=== PATIENT | female | born 1960 | race Caucasian/White ===

== ENCOUNTER → 2016-04-02 | Outpatient (CLI) | payer MEDICARE, OTHER ==
--- NOTE | 2016-04-05 12:39 | MM ---
Reason for exam: screening (asymptomatic). Last mammogram was performed 1 year and 3 months ago. History: Benign US breast aspiration single RT of the right breast, December 26, 2013. Physical Findings: A clinical breast exam by your physician is recommended on an annual basis and results should be correlated with mammographic findings. MG 3D Screening Mammo W/Cad Bilateral CC and MLO view(s) were taken. Prior study comparison: December 24, 2014, bilateral MG 3d screening mammo w/cad. December 26, 2013, right breast MG diagnostic mammo RT wo CAD. December 12, 2013, right breast MG work up mamm w CAD RT. December 05, 2013, bilateral MG screening mammo w CAD. December 17, 2009, bilateral digital screening mammogram. There are scattered fibroglandular densities. Adjacent nodularity is smaller. Previous mammotome biopsy in the right breast. No significant changes when compared with prior studies. ASSESSMENT: Negative, BI-RAD 1 RECOMMENDATION: Routine screening mammogram of both breasts in 1 year.
== END | disposition home or self-care (01) ==
LOC: RADMAMWWP 16:26
PROVIDERS: ATTEND Family Medicine
DX: Z12.31 Encounter for screening mammogram for malignant neoplasm of breast (principal)
CPT/HCPCS: 77063; G0202

== ENCOUNTER → 2017-01-03 | Outpatient (CLI) | payer MEDICARE, OTHER ==
--- NOTE | 2017-01-03 14:47 | US ---
EXAMINATION TYPE: US abdomen complete DATE OF EXAM: 01/03/2017 COMPARISON: NONE CLINICAL HISTORY: 56-year-old female R10.9 Abdominal pain,R39.9 urinary symptoms. Left flank pain TECHNIQUE: Multiple sonographic images of the abdomen are obtained. FINDINGS: Liver Length: 19.5 cm Gallbladder: Surgically absent CBD: 0.4 cm Spleen: 10.1 cm Right Kidney: 11.6 x 3.6 x 3.9 cm Left Kidney: 10.4 x 5.1 x 4.9 cm Pancreas: Suboptimal visualization of the pancreatic tail secondary to shadowing from bowel gas. Vis ualized portions appear within normal limits. Liver: enlarged but with normal homogeneous echotexture. Gallbladder: Surgically absent Evidence for sonographic Torrez's sign: No CBD: wnl Spleen: wnl Right Kidney: no hydronephrosis Left Kidney: no hydronephrosis Upper IVC: wnl Abd Aorta: visualized portions appear wnl IMPRESSION: 1. Hepatomegaly but otherwise with normal ultrasound appearance of the liver. 2. Status post cholecystectomy. No biliary ductal dilatation. 3. No hydronephrosis.
== END | disposition home or self-care (01) ==
LOC: RADUSWWP 13:08
PROVIDERS: ATTEND Family Medicine
DX: R16.0 Hepatomegaly, not elsewhere classified (principal); R10.9 Unspecified abdominal pain; R39.9 Unspecified symptoms and signs involving the genitourinary system; Z90.49 Acquired absence of other specified parts of digestive tract
CPT/HCPCS: 76700

== ENCOUNTER 2017-03-30 13:05 | Observation (INO) | payer MEDICARE, OTHER ==
[2017-03-30 13:28] LABS: Glucose,Whole Blood 79 mg/dL (75-99)
[2017-03-30] MEDS ORDERED: SODIUM CHLORIDE 0.9% 1,000 ML IV STA (13:32)
[2017-03-30 14:40] LABS: Basophils # (A) 0.1 k/uL (0-0.2); Basophils % (A) 1 %; Eosinophils # (A) 0.2 k/uL (0-0.7); Eosinophils % (A) 2 %; HCT 45.7 % (34.0-46.0); HGB 13.9 gm/dL (11.4-16.0); Lymphocytes # (A) 2.3 k/uL (1.0-4.8); Lymphocytes % (A) 25 %; MCH 28.6 pg (25.0-35.0); MCHC 30.4 g/dL (31.0-37.0); MCV 94.3 fL (80.0-100.0); Mean Platelet Volume 9.3; Monocytes # (A) 0.5 k/uL (0-1.0); Monocytes % (A) 6 %; Neutrophils % (A) 65 %; Platelet Count 250 k/uL (150-450); RBC 4.85 m/uL (3.80-5.40); RDW 12.3 % (11.5-15.5); WBC 9.2 k/uL (3.8-10.6)
[2017-03-30 14:50] LABS: ALT 24 U/L (9-52); AST 20 U/L (14-36); Albumin 4.4 g/dL (3.5-5.0); Alkaline Phosphatase 69 U/L (38-126); Anion Gap 9 mmol/L; Blood Urea Nitrogen 14 mg/dL (7-17); Calcium 10.5 mg/dL (8.4-10.2); Carbon Dioxide 29 mmol/L (22-30); Chloride 105 mmol/L (98-107); Glucose 91 mg/dL (74-99); Potassium 4.4 mmol/L (3.5-5.1); Sodium 143 mmol/L (137-145); Total Bilirubin 0.4 mg/dL (0.2-1.3); Total Protein 7.3 g/dL (6.3-8.2)
[2017-03-30 14:56] LABS: Partial Thromboplastin Time 23.6 sec (22.0-30.0); Prothrombin Time 10.1 sec (9.0-12.0)
[2017-03-30 15:05] LABS: Creatine Kinase 84 U/L (30-135)
[2017-03-30 15:18] LABS: Creatine Kinase MB 0.9 ng/mL (0.0-2.4); Troponin I <0.012 ng/mL (0.000-0.034)
--- NOTE | 2017-03-30 15:28 | CT ---
EXAMINATION TYPE: CT brain wo con DATE OF EXAM: 03/30/2017 COMPARISON: 03/14/2013 HISTORY: 56-year-old female Patient complains of left hand fingertip numbness and left side facial nu mbness. TECHNIQUE: Examination was done in axial plane without intravenous contrast. Coronal and sagittal r econstructions performed. CT DLP: 288.5 mGycm Automated exposure control for dose reduction was used. FINDINGS: There is no evidence of acute intracranial hemorrhage, acute ischemic changes, mass, mass-effect, or extra-axial fluid collection. There is no effacement of cerebral sulci or basal subarachnoid cister ns. There is no hydrocephalus. There is no midline shift. Larsen-white matter distinction is preserv ed. Partially empty sella. Mild bifrontal atrophy. Orbits and globes are intact. Mastoid air cells are we ll pneumatized. Paranasal sinuses clear. IMPRESSION: No acute intracranial abnormality seen. Mild bifrontal atrophy. If symptoms persist, consider follow- up CT or MRI.
--- NOTE | 2017-03-30 15:57 | ED ---
Neuro HPI - General Chief Complaint: Neuro Symptoms/Deficit Stated Complaint: Poss Stroke Time Seen by Provider: 03/30/17 13:27 Source: patient Mode of arrival: ambulatory Limitations: no limitations - History of Present Illness Is the patient presenting with stroke symptoms?: No Initial Comments: LEDA years old female with a history of previous CVA was sent from Dr. Cortes's office also has a history of seizure disorder along with the CVA presented with a left hand weakness and this weakness is ongoing for several days she said about 6 days and is too weak to sit dropping things she also noticed her blood pressure was high though she said mostly her blood pressures in the lower side also complaining about left-sided facial numbness. Denies any chest pain or shortness of breath denies any fever no chills does have a headache no blurred vision no weakness of present extremities - Related Data Home Medications: Home Medications Medication Instructions Recorded Confirmed Omeprazole [PriLOSEC] 20 mg PO BID PRN 01/23/16 03/30/17 Allergies/Adverse Reactions: Allergies Allergy/AdvReac Type Severity Reaction Status Date / Time No Known Allergies Allergy Verified 03/30/17 13:40 Review of Systems ROS Statement: Those systems with pertinent positive or pertinent negative responses have been documented in the HPI. ROS Other: All systems not noted in ROS Statement are negative. General Exam Limitations: no limitations Stroke MDM - Lab Data Result diagrams: 03/30/17 14:25 03/30/17 14:25 Lab Results 03/30/17 03/30/17 03/30/17 Range/Units 13:23 14:25 14:25 WBC 9.2 (3.8-10.6) k/uL RBC 4.85 (3.80-5.40) m/uL Hgb 13.9 (11.4-16.0) gm/dL Hct 45.7 (34.0-46.0) % MCV 94.3 (80.0-100.0) fL MCH 28.6 (25.0-35.0) pg MCHC 30.4 L (31.0-37.0) g/dL RDW 12.3 (11.5-15.5) % Plt Count 250 (150-450) k/uL Neutrophils % 65 % Lymphocytes % 25 % Monocytes % 6 % Eosinophils % 2 % Basophils % 1 % Neutrophils # 6.0 (1.3-7.7) k/uL Lymphocytes # 2.3 (1.0-4.8) k/uL Monocytes # 0.5 (0-1.0) k/uL Eosinophils # 0.2 (0-0.7) k/uL Basophils # 0.1 (0-0.2) k/uL PT (9.0-12.0) sec INR (<1.2) APTT (22.0-30.0) sec Sodium (137-145) mmol/L Potassium (3.5-5.1) mmol/L Chloride (98-107) mmol/L Carbon Dioxide (22-30) mmol/L Anion Gap mmol/L BUN (7-17) mg/dL Creatinine (0.52-1.04) mg/dL Est GFR (MDRD) Af Amer (>60 ml/min/1.73 sqM) Est GFR (MDRD) Non-Af (>60 ml/min/1.73 sqM) Glucose (74-99) mg/dL POC Glucose (mg/dL) 79 (75-99) mg/dL POC Glu Veterinary Parasitologist ID [facility] [place] Calcium (8.4-10.2) mg/dL Total Bilirubin (0.2-1.3) mg/dL AST (14-36) U/L ALT (9-52) U/L Alkaline Phosphatase (38-126) U/L Total Creatine Kinase 84 (30-135) U/L CK-MB (CK-2) 0.9 (0.0-2.4) ng/mL CK-MB (CK-2) Rel Index 1.1 Troponin I <0.012 (0.000-0.034) ng/mL Total Protein (6.3-8.2) g/dL Albumin (3.5-5.0) g/dL 03/30/17 03/30/17 Range/Units 14:25 14:25 WBC (3.8-10.6) k/uL RBC (3.80-5.40) m/uL Hgb (11.4-16.0) gm/dL Hct (34.0-46.0) % MCV (80.0-100.0) fL MCH (25.0-35.0) pg MCHC (31.0-37.0) g/dL RDW (11.5-15.5) % Plt Count (150-450) k/uL Neutrophils % % Lymphocytes % % Monocytes % % Eosinophils % % Basophils % % Neutrophils # (1.3-7.7) k/uL Lymphocytes # (1.0-4.8) k/uL Monocytes # (0-1.0) k/uL Eosinophils # (0-0.7) k/uL Basophils # (0-0.2) k/uL PT 10.1 (9.0-12.0) sec INR 1.0 (<1.2) APTT 23.6 (22.0-30.0) sec Sodium 143 (137-145) mmol/L Potassium 4.4 (3.5-5.1) mmol/L Chloride 105 (98-107) mmol/L Carbon Dioxide 29 (22-30) mmol/L Anion Gap 9 mmol/L BUN 14 (7-17) mg/dL Creatinine 0.90 (0.52-1.04) mg/dL Est GFR (MDRD) Af Amer >60 (>60 ml/min/1.73 sqM) Est GFR (MDRD) Non-Af >60 (>60 ml/min/1.73 sqM) Glucose 91 (74-99) mg/dL POC Glucose (mg/dL) (75-99) mg/dL POC Glu Veterinary Parasitologist ID Calcium 10.5 H (8.4-10.2) mg/dL Total Bilirubin 0.4 (0.2-1.3) mg/dL AST 20 (14-36) U/L ALT 24 (9-52) U/L Alkaline Phosphatase 69 (38-126) U/L Total Creatine Kinase (30-135) U/L CK-MB (CK-2) (0.0-2.4) ng/mL CK-MB (CK-2) Rel Index Troponin I (0.000-0.034) ng/mL Total Protein 7.3 (6.3-8.2) g/dL Albumin 4.4 (3.5-5.0) g/dL Past Medical History Past Medical History: CVA/TIA, Fibromyalgia, GERD/Reflux, Osteoarthritis (OA), Seizure Disorder Additional Past Medical History / Comment(s): BULDGING DISCS WITH BACK PAIN, FREQUENT CONSTIPATION, HX OF GESTATIONAL DIABETES, TIA X 3, LAST SEIZURE 3 YEARS AGO. History of Any Multi-Drug Resistant Organisms: None Reported Past Surgical History: Appendectomy, Cholecystectomy, Hysterectomy, Orthopedic Surgery Additional Past Surgical History / Comment(s): right knee, right shoulder, eye lid surgery Past Anesthesia/Blood Transfusion Reactions: No Reported Reaction Additional Past Anesthesia/Blood Transfusion Reaction / Comment(s): Did not receive enough anesthesia with eye lid surgery and could feel. Past Psychological History: Anxiety Smoking Status: Former smoker Past Alcohol Use History: Occasional Past Drug Use History: None Reported - Past Family History Mother Family Medical History: Myocardial Infarction ([place]) Sister(s) Family Medical History: Cancer, Deep Vein Thrombosis (DVT), Myocardial Infarction ([place]) Course Vital Signs 03/30/17 03/30/17 13:09 15:15 Temperature 97.9 F Pulse Rate 71 70 Respiratory 16 18 Rate Blood Pressure 180/93 167/78 O2 Sat by Pulse 97 96 Oximetry EKG is normal sinus rhythm ventricular rate is 66 NE interval is 152 QRS duration is 82 QT/QTc is 390/48 review of this EKG reveals T-wave inversion in lead [address] elevation or ST depression noticed in the other leads Was reassessed at 1546 Hematocrit 7being red and puffy and is swollen but there is some weakness weakness or numbness. CT of the brain is normal. We discussed in length possibilities of the left hand weakness she could be a carpal tunnel could be a pinched nerve in the neck she does have a bulging disc in the cervical spine. It could be radiculopathy there is a possibility it could be a brainstem infarct considering that) the hospital under Dr. Paulson are service and will consult neurology Disposition Clinical Impression: Hypertension, Numbness and tingling of left side of face, Left hand weakness Disposition: ADMITTED IP TO THIS HOSP Condition: Good Referrals: Kiera Jennings MD [Primary Care Provider] - 1-2 days
[2017-03-30] MEDS ORDERED: ASPIRIN 81 MG PO STA (15:58)
--- NOTE | 2017-03-30 16:25 | XR ---
EXAMINATION TYPE: XR chest 2V DATE OF EXAM: 03/30/2017 COMPARISON: Prior chest x-ray 05/05/2015 HISTORY: Altered mental status, numbness in left hand and face TECHNIQUE: Frontal and lateral views of the chest are obtained. FINDINGS: There are overlying cardiac leads. There is no focal air space opacity, pleural effusion, o r pneumothorax seen. The cardiac silhouette size is within normal limits. Prominent lung volume may be indicative of underlying COPD. The osseous structures are intact. IMPRESSION: No acute cardiopulmonary process.
[2017-03-30] MEDS ORDERED: NALOXONE 0.4 MG/ML 1 ML VIAL IV PRN (16:38)
[2017-03-30] MEDS ORDERED: CEPHALEXIN 500 MG CAP PO STA (16:43)
[2017-03-30 20:35] VITALS: BMI 30.8
[2017-03-30] MEDS: CEPHALEXIN 500 MG CAP PO SCH (21:28)
[2017-03-30] MEDS: PANTOPRAZOLE 40 MG TABLET PO PRN (21:28)
[2017-03-31 06:13] LABS: Glucose,Whole Blood 91 mg/dL (75-99)
[2017-03-31] MEDS: CEPHALEXIN 500 MG CAP PO SCH (09:26)
[2017-03-31] MEDS: PANTOPRAZOLE 40 MG TABLET PO PRN (09:26)
[2017-03-31] MEDS: ACETAMINOPHEN TAB 325 MG TAB PO PRN ×2 (09:27→18:32)
--- NOTE | 2017-03-31 11:41 | P.HPIM ---
History of Present Illness H&P Date: 03/31/17 This is a 56-year-old female who presented to the emergency room with left hand numbness and weakness. Patient said that her symptoms started few days ago. She said that she was unable to open a water bottle and felt very weak. She said the numbness is only in her fingertips. She said couple of month ago she was having similar symptoms in her right arm that resolved. At that time he was thought to be attributed to her back problems as she is known to have disks in her lumbar spine. She was never evaluated for any problems in the cervical spine. She said that she was sent by her primary care physician to the emergency room for further evaluation. She denies any weakness otherwise in other parts of her body. She is wondering if she could go home and is not sure why she was admitted to the hospital. Review of Systems Review of system: 14 points review of systems were obtained and were negative except to what were mentioned in the HPI. Past Medical History Past Medical History: CVA/TIA, Fibromyalgia, GERD/Reflux, Osteoarthritis (OA), Seizure Disorder Additional Past Medical History / Comment(s): BULDGING DISCS WITH BACK PAIN, FREQUENT CONSTIPATION, HX OF GESTATIONAL DIABETES, TIA X 3, LAST SEIZURE 3 YEARS AGO. History of Any Multi-Drug Resistant Organisms: None Reported Past Surgical History: Appendectomy, Cholecystectomy, Hysterectomy, Orthopedic Surgery Additional Past Surgical History / Comment(s): right knee, right shoulder, eye lid surgery Past Anesthesia/Blood Transfusion Reactions: No Reported Reaction Additional Past Anesthesia/Blood Transfusion Reaction / Comment(s): Did not receive enough anesthesia with eye lid surgery and could feel. Past Psychological History: Anxiety Smoking Status: Former smoker Past Alcohol Use History: Occasional Additional Past Alcohol Use History / Comment(s): SMOKED 4 YEARS -QUIT AT AGE 19. Past Drug Use History: None Reported - Past Family History Mother Family Medical History: Myocardial Infarction ([place]) Sister(s) Family Medical History: Cancer, Deep Vein Thrombosis (DVT), Myocardial Infarction ([place]) Medications and Allergies Home Medications Medication Instructions Recorded Confirmed Type Omeprazole [PriLOSEC] 20 mg PO BID PRN 01/23/16 03/30/17 History Allergies Allergy/AdvReac Type Severity Reaction Status Date / Time No Known Allergies Allergy Verified 03/30/17 13:40 Physical Exam Vitals: Vital Signs Temp Pulse Pulse Resp BP BP Pulse Ox 03/31/17 08:00 97.1 F L 71 16 140/82 98 03/31/17 04:00 97.6 F 64 16 115/67 98 03/31/17 00:00 97.0 F L 64 16 133/67 98 03/30/17 20:00 97.4 F L 73 16 135/65 100 03/30/17 18:19 97.9 F 74 16 151/75 97 03/30/17 15:15 70 18 167/78 96 03/30/17 13:09 97.9 F 71 16 180/93 97 Intake and Output 03/30/17 03/31/17 03/31/17 22:59 06:59 14:59 Intake Total 300 10 480 Output Total 200 Balance 100 10 480 Intake: IV 300 10 0.9 300 10 Oral 480 Output: Urine 200 Other: Voiding Method Toilet Toilet Toilet # Voids 1 Weight 86.636 kg 86.4 kg General: The patient is awake and alert, in no distress Eye: there is normal conjunctiva bilaterally. Neck: The neck is supple, there is no JVD. Cardiovascular: Normal S1-S2, no S3-S4, no murmurs. Respiratory: Lungs clear to auscultation bilaterally Gastrointestinal: Abdomen is soft, nontender Musculoskeletal: There is no pedal edema. Neurological:. Speech is normal. Skin: Skin is warm and dry Results CBC & Chem 7: 03/30/17 14:25 03/30/17 14:25 Labs: Abnormal Lab Results - Last 24 Hours (Table) 03/30/17 03/30/17 Range/Units 14:25 14:25 MCHC 30.4 L (31.0-37.0) g/dL Calcium 10.5 H (8.4-10.2) mg/dL Thrombosis Risk Factor Assmnt - Choose All That Apply Any of the Below Risk Factors Present?: Yes Each Factor Represents 1 point: Age 41-60 years Other Risk Factors: No Other congenital or acquired thrombophilia - If yes, enter type in comment: No Thrombosis Risk Factor Assessment Total Risk Factor Score: 1 Thrombosis Risk Factor Assessment Level: Low Risk Assessment and Plan Assessment: 1. Weakness of the left hand with numbness, computed tomography scan of the brain showed no acute findings. Awaiting neurology evaluation. I would order MRI of the brain and cervical spine for further evaluation. Differential diagnosis includes possible CVA versus degenerative disc disease. 2. GERD on Protonix 3. DVT prophylaxis with subcu heparin Today, I reviewed her medication list and lab work results. We will obtain fasting lipid profile. Appreciate neurology recommendations.
[2017-03-31 12:02] LABS: Glucose,Whole Blood 105 mg/dL (75-99)
--- NOTE | 2017-03-31 16:52 | MR ---
EXAMINATION TYPE: MR brain wo cspine wo/w DATE OF EXAM: 03/31/2017 COMPARISON: 05/15/2009 HISTORY: Numbness and Weakness Both [place] and Hands, Gadavist 8.5 CONTRAST: Brain is performed noncontrast. TECHNIQUE: Multiplanar, multiecho imaging on a 3.0 Carlene magnet is performed through the brain. Stud y is performed within 24 hours of arrival to the hospital. The craniovertebral junction is normal. The pituitary is normal. Diffusion-weighted imaging is performed. No abnormal hyperintensity is present to suggest an acute i ntracranial infarct or acute ischemic change. Signal through the brain is normal. Ventricles and sulci are appropriate for the patient age. IMPRESSIONS: 1. Normal pre and postcontrast MRI brain. EXAMINATION TYPE: MR brain wo cspine wo/w DATE OF EXAM: 03/31/2017 COMPARISON: NONE HISTORY: Numbness and Weakness Both [place] and Hands, Gadavist 8.5 CONTRAST: Performed utilizing 8.5 mL intravenous Gadavist gadolinium contrast. TECHNIQUE: Multiplanar multiecho imaging on a 3.0 Carlene magnet is performed through the cervical spin e. FINDINGS: The craniovertebral junction is normal. Vertebral body alignment is normal. C7-T1: No focal disc herniation or significant disc bulge is evident. No spinal canal stenosis or n eural foraminal stenosis is present. C6-7: Mild disc bulge is present with anterior thecal sac contact. This may be slightly greater in th e right paracentral region. On postcontrast imaging no stenosis is evident. C5-6: Mild broad-based disc bulge is present. There is mild anterior thecal sac compression. No AP s crys canal stenosis. C4-5: No focal disc herniation or significant disc bulge is evident. No spinal canal stenosis or roderick ral foraminal stenosis is present. C3-4: No focal disc herniation or significant disc bulge is evident. No spinal canal stenosis or roderick ral foraminal stenosis is present. C2-3: No focal disc herniation or significant disc bulge is evident. No spinal canal stenosis or roderick ral foraminal stenosis is present. There may be some mild signal change on T2 type sequences within the spinal cord posterior to the CT 56 C6-7 level. This is not identified in the axial plane and may be artifact. No abnormal enhancement is evident. IMPRESSIONS: 1. Mild disc bulges are likely present C5-6 C6-7 with mild anterior thecal sac compression. The postc ontrast T1-weighted images do not have any stenosis is evident although mild canal narrowing may be p resent on sagittal T2-weighted imaging 2. Some subtle signal change within the spinal cord posterior to the C5-6 C6-7 level may be artifact and not identified elsewhere.
[2017-03-31 16:58] LABS: Glucose,Whole Blood 114 mg/dL (75-99)
[2017-03-31] MEDS: HEPARIN SODIUM,PORCINE 5,000 UNIT/ML 1 ML VIAL SQ SCH (20:27)
[2017-04-01 00:42] VITALS: RESP 18
[2017-04-01 06:59] LABS: Cholesterol 219 mg/dL (<200); HDL Cholesterol 50 mg/dL (40-60); LDL Cholesterol,Calculated 141 mg/dL (0-99); Triglycerides 138 mg/dL (<150)
[2017-04-01] MEDS ORDERED: PANTOPRAZOLE 40 MG TABLET PO SCH (07:30)
[2017-04-01] MEDS: HEPARIN SODIUM,PORCINE 5,000 UNIT/ML 1 ML VIAL SQ SCH (08:33)
--- NOTE | 2017-04-01 12:07 | P.DS ---
Providers Date of admission: 03/30/17 16:38 Expected date of discharge: 04/01/17 Attending physician: Marycruz Rey Consults: 03/30/17 16:38 Consult Physician Stat Consulting Provider: Cole Billings Consult Reason/Comments: Left arm weakness Do you want consulting provider notified?: Yes Primary care physician: Kiera Jennings Hospital Course: 1. Weakness of the left hand with numbness, computed tomography scan of the brain showed no acute findings. Patient underwent MRI of the brain that was normal. She underwent MRI of the cervical spine showing mild disc bulging at C5 through C7.patient said that her symptoms improved and she did not want to wait for spine surgery evaluation during this admission. She would like to go home and follow-up in the office. 2. GERD on Protonix 3. Hyperlipidemia, started on low-dose Lipitor daily. Patient Condition at Discharge: Good Plan - Discharge Summary Discharge Rx Participant: No New Discharge Prescriptions: New Atorvastatin Calcium [Lipitor] 10 mg PO HS #30 tab Continue Omeprazole [PriLOSEC] 20 mg PO BID PRN PRN Reason: Heartburn Discharge Medication List Omeprazole [PriLOSEC] 20 mg PO BID PRN 01/23/16 [History] Atorvastatin Calcium [Lipitor] 10 mg PO HS #30 tab 04/01/17 [Rx] Follow up Appointment(s)/Referral(s): Kiera Jennings MD [Primary Care Provider] - 1-2 days Discharge Disposition: HOME SELF-CARE
[2017-04-01 12:43] VITALS: BP 150/87; PULSE 83; TEMP 97.6
== END 2017-04-01 14:10 | disposition home or self-care (01) ==
LOC: EC 13:05 → 6SEL 16:38
PROVIDERS: ADMIT Internal Medicine; ATTEND Internal Medicine
DX: R53.1 Weakness (principal); R20.0 Anesthesia of skin; K21.9 Gastro-esophageal reflux disease without esophagitis; E78.5 Hyperlipidemia, unspecified; M50.923 Unspecified cervical disc disorder at C6-C7 level; I10 Essential (primary) hypertension; Z82.49 Family history of ischemic heart disease and other diseases of the circulatory system; Z80.9 Family history of malignant neoplasm, unspecified; Z83.2 Family history of diseases of the blood and blood-forming organs and certain disorders involving the immune mechanism; Z87.891 Personal history of nicotine dependence; Z86.73 Personal history of transient ischemic attack (TIA), and cerebral infarction without residual deficits
CPT/HCPCS: 99285; 96360 ×2; 96361 ×7; 96372 ×2; 36415; 93005; 80061; 80053; 82550; 82553; 84484; 85025; 85610; 85730; 71046; 70450; 70551; 72156; G0378 ×3; J1644 ×2; A9581

== ENCOUNTER → 2017-04-04 | Outpatient (CLI) | payer MEDICARE, OTHER ==
--- NOTE | 2017-04-05 14:19 | MM ---
Reason for exam: screening (asymptomatic). Last mammogram was performed 1 year ago. History: Benign US breast aspiration single RT of the right breast, December 26, 2013. Physical Findings: A clinical breast exam by your physician is recommended on an annual basis and results should be correlated with mammographic findings. MG 3D Screening Mammo W/Cad Bilateral CC and MLO view(s) were taken. Prior study comparison: April 02, 2016, bilateral MG 3d screening mammo w/cad. December 24, 2014, bilateral MG 3d screening mammo w/cad. There are scattered fibroglandular densities. No suspicious abnormality. Right biopsy marker noted. No significant changes when compared with prior studies. ASSESSMENT: Negative, BI-RAD 1 RECOMMENDATION: Routine screening mammogram of both breasts in 1 year.
== END | disposition home or self-care (01) ==
LOC: RADMAMWWP 14:02
PROVIDERS: ATTEND Family Medicine
DX: Z12.31 Encounter for screening mammogram for malignant neoplasm of breast (principal)
CPT/HCPCS: 77063; 77067

== ENCOUNTER → 2017-10-18 | Outpatient (CLI) | payer MEDICARE, OTHER ==
--- NOTE | 2017-10-18 16:43 | US ---
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 Left calf pain since Tuesday and at varicose ve ins medial upper calf. SIDE PERFORMED: Left TECHNIQUE: The lower extremity deep venous system is examined utilizing real time linear array sonog ghulam with graded compression, doppler sonography and color-flow sonography. VESSELS IMAGED: Common Femoral Vein Deep Femoral Vein Greater Saphenous Vein * Femoral Vein dual noted Popliteal Vein Small Saphenous Vein * Proximal Calf Veins (* superficial vessels) FINDINGS: Grayscale, color doppler, spectral doppler imaging performed of the deep veins of the lower extremities. There is normal flow, compressibility, vascular waveforms. IMPRESSION: 1. NEGATIVE FOR DVT, LEFT LOWER EXTREMITY. 2. NEGATIVE FOR SVT AT VERY SUPERFICIAL VARICOSE VEINS MEDIAL UPPER CALF; FINDINGS CALLED TO KEVIN RAMIREZ.
== END | disposition home or self-care (01) ==
LOC: RADUSWWP 15:03
PROVIDERS: ATTEND Family Medicine
DX: M79.605 Pain in left leg (principal); I99.8 Other disorder of circulatory system

== ENCOUNTER → 2017-12-05 | Outpatient (CLI) | payer MEDICARE, OTHER ==
--- NOTE | 2017-12-05 14:17 | NM ---
EXAMINATION TYPE: NM bone/joint limited DATE OF EXAM: 12/05/2017 COMPARISON: NONE HISTORY: Sacral lesion TECHNIQUE: After the intravenous administration of 24.1 mCi Tc 99m MDP. Images acquired 3.5 hours p ost injection. Multiple views of pelvis are submitted. There is no abnormal uptake within the visualized osseous structures to suggest acute process. IMPRESSION: 1. No definite acute osseous abnormality. Correlate with x-ray as clinically warranted. If there is a n intraosseous lesion of the sacrum consider MRI.
== END | disposition home or self-care (01) ==
LOC: RADNMMAIN 09:57
PROVIDERS: ATTEND Psychiatry & Neurology Neurology
DX: R10.2 Pelvic and perineal pain (principal); M89.9 Disorder of bone, unspecified
CPT/HCPCS: 78300; A9503

== ENCOUNTER → 2018-01-06 | Outpatient (CLI) | payer MEDICARE, OTHER ==
--- NOTE | 2018-01-06 11:01 | MR ---
MR sacrum HISTORY: Sacral lesion Multiplanar multisequence and postcontrast images obtained through the sacrum following 7 cc Gadavist IV. correlation to bone scan 12/05/2017 There is a focal T1 and T2 low signal focus in the posterior left ilium likely representing bone josué nd, there is no cortical destruction or marrow edema. No abnormal enhancement following contrast admi nistration. Sacrum shows no lesion. There is deviation of the sacrum towards the left of midline leeann pherally. No evident spinal stenosis. Facet arthropathy change noted at the lumbosacral junction. Sac roiliac joints within normal limits. IMPRESSION: Bone island left ilium. 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 No additional exams are available for comparison. Correlate with any additional findings.
== END ==
LOC: RADMRIMAIN 09:01
PROVIDERS: ATTEND Psychiatry & Neurology Pain Medicine
DX: Z09 Encounter for follow-up examination after completed treatment for conditions other than malignant neoplasm (principal); M89.8X8 Other specified disorders of bone, other site; Z87.2 Personal history of diseases of the skin and subcutaneous tissue
CPT/HCPCS: 72197; A9585

== ENCOUNTER → 2019-01-16 | Outpatient (CLI) | payer MEDICARE, OTHER ==
--- NOTE | 2019-01-17 09:43 | MM ---
Reason for exam: screening (asymptomatic). Last mammogram was performed 1 year and 9 months ago. History: Benign US breast aspiration single RT of the right breast, December 26, 2013. Physical Findings: A clinical breast exam by your physician is recommended on an annual basis and results should be correlated with mammographic findings. MG 3D Screening Mammo W/Cad Bilateral CC and MLO view(s) were taken. Prior study comparison: April 04, 2017, bilateral MG 3d screening mammo w/cad. April 02, 2016, bilateral MG 3d screening mammo w/cad. There are scattered fibroglandular densities. No suspicious abnormality. Right biopsy marker noted. No significant changes when compared with prior studies. ASSESSMENT: Negative, BI-RAD 1 RECOMMENDATION: Routine screening mammogram of both breasts in 1 year.
== END | disposition home or self-care (01) ==
LOC: RADMAMWWP 14:36
PROVIDERS: ATTEND Internal Medicine
DX: Z12.31 Encounter for screening mammogram for malignant neoplasm of breast (principal)
CPT/HCPCS: 77063; 77067

== ENCOUNTER → 2021-03-24 | Outpatient (CLI) | payer MEDICARE, OTHER ==
[2021-03-24 14:59] LABS: ALT 10 U/L (8-44); AST 15 U/L (13-35); African American GFR (CKD) 108.1 (60.0-200.0); Albumin 4.5 g/dL (3.8-4.9); Albumin/Globulin Ratio 1.62 (1.60-3.17); Alkaline Phosphatase 60 U/L (41-126); Blood Urea Nitrogen 12.9 mg/dL (9.0-27.0); Calcium 10.1 mg/dL (8.7-10.3); Carbon Dioxide 21.9 mmol/L (20.0-27.5); Chloride 108 mmol/L (96-109); Chol/HDL Ratio 3.66 Ratio; Globulin 2.7 g/dL (1.6-3.3); Glucose 84 mg/dL (70-110); LDL Cholesterol,Calculated 125.8 mg/dL (0.0-131.0); Non-African American GFR(CKD) 93.3 (60.0-200.0); Potassium 4.5 mmol/L (3.5-5.5); Sodium 143 mmol/L (135-145); Total Protein 7.2 g/dL (6.2-8.2); VLDL Calculation 10.12 mg/dL (5.00-40.00)
[2021-03-24 15:11] LABS: Basophils # (A) 0.06 X 10*3/uL (0.00-0.10); Basophils % (A) 0.9 %; Eosinophils # (A) 0.25 X 10*3/uL (0.04-0.35); Eosinophils % (A) 3.8 %; HCT 44.8 % (37.2-46.3); Immature Grans, Automated 0.2 %; Lymphocytes # (A) 1.45 X 10*3/uL (0.90-5.00); Lymphocytes % (A) 21.9 %; MCH 29.2 pg (27.0-32.0); MCHC 31.3 g/dL (32.0-37.0); MCV 93.3 fL (80.0-97.0); Mean Platelet Volume 13.5 fL (9.5-12.2); Monocytes # (A) 0.59 X 10*3/uL (0.20-1.00); Monocytes % (A) 8.9 %; NRBC Per 100 WBC 0 /100 WBCS (0.0-0.0); Neutrophils # (A) 4.25 X 10*3/uL (1.80-7.70); Neutrophils % (A) 64.3 %; Platelet Count 250 X 10*3/uL (140-440); RDW 12.8 % (11.5-14.5); WBC 6.61 X 10*3/uL (4.50-10.00)
--- NOTE | 2021-03-25 08:56 | MM ---
Reason for exam: screening (asymptomatic). Last mammogram was performed 2 years and 2 months ago. History: Benign US breast aspiration single RT of the right breast, December 26, 2013. Physical Findings: A clinical breast exam by your physician is recommended on an annual basis and results should be correlated with mammographic findings. MG 3D Screening Mammo W/Cad Bilateral CC and MLO view(s) were taken. Prior study comparison: January 16, 2019, bilateral MG 3d screening mammo w/cad. April 04, 2017, bilateral MG 3d screening mammo w/cad. There are scattered fibroglandular densities. There is no discrete abnormality. No significant changes when compared with prior studies. ASSESSMENT: Negative, BI-RAD 1 RECOMMENDATION: Routine screening mammogram of both breasts in 1 year.
== END | disposition home or self-care (01) ==
LOC: RADMAMWWP 07:52
PROVIDERS: ATTEND Family Medicine
DX: Z12.31 Encounter for screening mammogram for malignant neoplasm of breast (principal); I26.99 Other pulmonary embolism without acute cor pulmonale
CPT/HCPCS: 36415; 77063; 77067; 80053; 80061; 84443; 85025

== ENCOUNTER → 2021-09-17 | Outpatient (CLI) | payer MEDICARE, OTHER ==
--- NOTE | 2021-09-17 17:42 | BD ---
EXAMINATION TYPE: Axial Bone Density DATE OF EXAM: 09/17/2021 COMPARISON: 03.31.2007 SPINE AND 09-07-04 HIPS CLINICAL HISTORY: 61 years year old Female. ICD-10 CODE: Z78.0 ASYMPTOMATIC MENOPAUSAL STATE Height: 178 Weight: 63IN FRAX RISK QUESTIONS: Family History (Parent hip fracture): YES Secondary Osteoporosis: RISK FACTORS HISTORY OF: Family History of Osteoporosis: YES Active: YES Diet low in dairy products/other sources of calcium: NO Postmenopausal woman: YES MEDICATIONS: Prednisone or other steroids: YES How Lon DAYS Additional Medications: VITAMIN D, BP MED, Additional History: EXAM MEASUREMENTS: Bone mineral densitometry was performed using the [facility]. Bone mineral density as measured about the Lumbar spine is: ----- L1-L4(G/cm2): 1.002 T Score Values are as follows: ----- L1: -2.2 ----- L2: -1.4 ----- L3: -0.7 ----- L4: -1.8 ----- L1-L4: -1.5 Bone mineral density has: Decreased -12.2% since study of: 03.31.07 Bone mineral density about the R hip (g/cm2): 0.746 Bone mineral density about the L hip (g/cm2): 0.794 T Score values are as follows: -----R Neck: -2.0 -----L Neck: -2.1 -----R Total: -2.1 -----L Total: -1.7 Bone mineral density has: Decreased -16.2% since study of: 09.07.2004 FRAX%s: The graph provided illustrates a 19.7% chance for a major osteoporotic fx and a 1.7% chance f or the hips probability for fx in 10 years time. IMPRESSION: Osteopenia (T Score between -2.5 and -1). There is slightly increased risk of fracture and the patient may be considered for treatment. Re-Screen 2-5 years. NOTE: T-SCORE=SD OF THE YOUNG ADULT MEAN.
== END | disposition home or self-care (01) ==
LOC: RADBDWWP 07:54
PROVIDERS: ATTEND Family Medicine
DX: Z78.0 Asymptomatic menopausal state (principal)
CPT/HCPCS: 77080

== ENCOUNTER → 2021-09-29 | Outpatient (CLI) | payer MEDICARE, OTHER ==
--- NOTE | 2021-09-29 12:21 | MR ---
EXAMINATION TYPE: #3 DATE OF EXAM: 09/29/2021 COMPARISON: 11/15/2010 HISTORY: Lower back pain, radiating into buttocks. TECHNIQUE: T1 and T2 axial and sagittal images of the lumbar spine are submitted. FINDINGS: There is no abnormal signal seen within the visualized spinal cord or paraspinal soft tissu es. There are sagittal disc bulging at T11-T12 not included in [id number] axial images At T12-L1 there is degenerative disc disease. At L1-2 there is degenerative disc disease with sagittal disc bulging. Mild broad-based central disc bulging. There is hypertrophic change of the facets but no canal stenosis or focal herniation. Neural foramina remain patent. Anterior hypertrophic spurring noted. At L2-3 there is a vertebral body hemangioma of L2. There is hypertrophic change facets but no disc h erniation or canal stenosis. No foraminal encroachment. No canal stenosis. At L3-4 there is degenerative disc disease and hypertrophic changes of the facets but no disc herniat ion or canal stenosis. No foraminal impingement. At L4-5 there is degenerative disc disease but no evidence of disc herniation or canal stenosis. Broa d-based disc bulging seen with hypertrophic changes of the facets and ligamentum flavum. Mild bilater al foraminal encroachment At L5-S1 there is facet arthropathy appears advanced with degenerative disc disease. There is mild ri ght foraminal approach. Very minimal anterolisthesis noted. Likely related to advanced facet IMPRESSION: 1. Multilevel degenerative disc disease. 2. A broad-based disc bulging L1-L2 with mild effacement of thecal sac. No canal stenosis, discrete h erniation identified. 3. Multilevel facet arthropathy. 4. Disc bulging L4-L5 with hypertrophic changes contributes to mild bilateral foraminal encroachment. 5. Mild right foraminal encroachment L5-S1 with very minimal grade 1 anterolisthesis likely degenerat ronald. 6. Sagittal disc bulging T11-T12.
== END | disposition home or self-care (01) ==
LOC: RADMRIMAIN 10:21
PROVIDERS: ATTEND Orthopaedic Surgery Orthopaedic Surgery of the Spine
DX: M62.830 Muscle spasm of back (principal); M54.40 Lumbago with sciatica, unspecified side; M51.36 Other intervertebral disc degeneration, lumbar region; M41.86 Other forms of scoliosis, lumbar region; M51.34 Other intervertebral disc degeneration, thoracic region
CPT/HCPCS: 72148

== ENCOUNTER → 2022-09-17 | Outpatient (CLI) | payer MEDICARE, OTHER ==
[2022-09-17 21:29] LABS: ALT 14 U/L (8-44); AST 16 U/L (13-35); Albumin 4.4 d/dL (3.8-4.9); Albumin/Globulin Ratio 1.83 Ratio (1.60-3.17); Alkaline Phosphatase 65 U/L (41-126); BUN/Creat Ratio 15.12 Ratio (12.00-20.00); Blood Urea Nitrogen 12.1 mg/dL (9.0-27.0); Calcium 10.2 mg/dL (8.7-10.3); Carbon Dioxide 26.7 mmol/L (21.6-31.8); Chloride 104 mmol/L (96-109); Globulin 2.4 d/dL (1.6-3.3); Glucose 91 mg/dL (70-110); Phosphorus 3.7 mg/dL (2.4-5.1); Potassium 4.5 mmol/L (3.5-5.5); Sodium 139 mmol/L (135-145); Total Bilirubin 0.2 mg/dL (0.3-1.2); Total Protein 6.8 d/dL (6.2-8.2)
== END | disposition home or self-care (01) ==
LOC: LABWHC1 14:46
PROVIDERS: ATTEND Family Medicine
DX: E83.52 Hypercalcemia (principal)
CPT/HCPCS: 36415; 80053; 82306; 83970; 84100; 84443

== ENCOUNTER 2023-05-27 12:51 | Day surgery (SDC) | payer MEDICARE, OTHER ==
[2023-05-25 16:01] VITALS: BMI 30.6
[2023-05-27] MEDS: LACTATED RINGERS 1,000 ML IV SCH (13:25)
[2023-05-27 13:39] VITALS: TEMP 98
[2023-05-27] MEDS: fentaNYL (PF) 50 MCG/ML 2 ML AMP IVP ONE (14:06)
[2023-05-27] MEDS ORDERED: PROPOFOL 10 MG/ML 20 ML VIAL IV ONE (14:58)
--- NOTE | 2023-05-27 15:18 | P.PCN ---
Date of Procedure: 05/27/23 Procedure(s) Performed: BRIEF HISTORY: Patient is a 62-year-old pleasant white female scheduled for an elective colonoscopy as a part of screening for colon cancer and family history of colon cancer.2 brothers were diagnosed with colon cancer at age 65 and 16 respectively PROCEDURE PERFORMED: Colonoscopy. PREOPERATIVE DIAGNOSIS: Screening for colon cancer and family history of colon cancer IV sedation per Anesthesia. PROCEDURE: After informed consent was obtained, the patient, was brought into the endoscopy unit. IV sedation was administered by Anesthesia under continuous monitoring. Digital rectal examination was normal. Initially the Olympus CF-160 flexible video colonoscope was then inserted in the rectum, gradually advanced into the cecum without any difficulty. Careful examination was performed as the scope was gradually being withdrawn. Ileocecal valve and the appendiceal orifice were visualized and appeared normal. Prep was excellent. Mucosa of the cecum, ascending colon, transverse colon, descending colon, appeared normal. In the distal sigmoid colon there was a 5 mm sessile polyp that was removed by cold snare polypectomy. Rest of thesigmoid colon, and rectum appeared normal. scattered sigmoid diverticulosis.Retroflexion was performed in the rectum and no lesions were seen. The patient tolerated the procedure well. IMPRESSION: 5 mm distal sigmoid colon polyp status post cold snare polypectomy Scattered sigmoid diverticulosis RECOMMENDATIONS: Findings of this examination were discussed with the patient as well as a family. She was advised to follow with the biopsy results and have a repeat colonoscopy in 5 years because of the strong family history of colon cancer
[2023-05-27 15:42] VITALS: BP 131/72; PULSE 79; RESP 14
== END 2023-05-27 15:52 | disposition home or self-care (01) ==
LOC: ORWHC2ENDO 12:51
PROVIDERS: ATTEND Internal Medicine Gastroenterology
DX: Z12.11 Encounter for screening for malignant neoplasm of colon (principal); K63.5 Polyp of colon; K57.30 Diverticulosis of large intestine without perforation or abscess without bleeding; Z80.0 Family history of malignant neoplasm of digestive organs; I10 Essential (primary) hypertension; K21.9 Gastro-esophageal reflux disease without esophagitis; G40.909 Epilepsy, unspecified, not intractable, without status epilepticus; Z90.49 Acquired absence of other specified parts of digestive tract; Z87.891 Personal history of nicotine dependence; Z79.899 Other long term (current) drug therapy
CPT/HCPCS: 45385; J3010; J2704